=== PATIENT | male | born 1995 | race Caucasian/White ===

== ENCOUNTER 2017-10-13 16:30 | Emergency (ER) | payer OTHER ==
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
[2017-10-13 17:28] VITALS: BP 122/82; PULSE 77; RESP 20; TEMP 97.9; O2SAT 95
== END 2017-10-13 17:28 | disposition home or self-care (01) ==
PROC: 0CQ0XZZ Repair Upper Lip, External Approach (ICD-10-PCS; principal; 2017-10-13)
DX: S01.511A Laceration without foreign body of lip, initial encounter (principal); V18.0XXA Pedal cycle driver injured in noncollision transport accident in nontraffic accident, initial encounter; Y92.410 Unspecified street and highway as the place of occurrence of the external cause; Y93.39 Activity, other involving climbing, rappelling and jumping off

== ENCOUNTER 2018-03-12 20:09 | Emergency (ER) | payer OTHER ==
[2018-03-12] MEDS ORDERED: PROPARACAINE/FLUORESCEIN SOD 5 ML OPHT.BTL ONE (20:12)
[2018-03-12 20:18] VITALS: BP 137/72
[2018-03-12] MEDS ORDERED: OFLOXACIN 0.3% SOLN PREPACK OPHT.BTL TAKEHOME ONE (20:38)
--- NOTE | 2018-03-12 20:38 | EDPHY ---
H & P Smoking Status: Never smoked Time Seen by Provider: 03/12/18 20:18 HPI/ROS: CHIEF COMPLAINT: Right eye redness and discharge HISTORY OF PRESENT ILLNESS: 22-year-old male presents to the emergency department with right eye redness and discharge that just began this evening. He denies any known trauma or injury. He does wear contacts but does not wear them through the night. He describes only symptoms in the right eye. No symptoms in the left eye. No foreign body sensation. ROS: No visual changes. No symptoms in the left eye. (Adelita Kiser) Past Medical/Surgical History: Acne (Adelita Kiser) Social History: Single (Adelita Kiser) Physical Exam: Visual Acuity: noted from Nurse's notes. Pupils:equal round and reactive to light EOMI Lids: no edema or swelling Skin: no proptosis, no periorbital erythema or swelling, no vesicles Conjunctivae: Mild scleral injection to the right conjunctiva. Purulent drainage noted. Left eye is clear. Cornea: Slit-lamp examination not performed. Cornea otherwise appears normal. Anterior chamber:normal, no hyphema or hypopyon (Adelita Kiser) Constitutional: Initial Vital Signs Temperature (C) 36.6 C 03/12/18 20:17 Heart Rate 63 03/12/18 20:17 Respiratory Rate 16 03/12/18 20:17 Blood Pressure 137/72 H 03/12/18 20:17 O2 Sat (%) 95 03/12/18 20:17 O2 Delivery Mode Room Air Allergies/Adverse Reactions: No Known Allergies Allergy (Verified 03/12/18 20:16) Home Medications: Medication Instructions Recorded NK [No Known Home Meds] 10/13/17 MDM/Departure - MDM Medications Given: Discontinued Medications Ofloxacin (Ocuflox 0.3% Opht Drops Prepack) [facility] Stop: 03/12/18 20:39 Last Admin: 03/12/18 20:49 Dose: 1 btl ED Course/Re-evaluation: Clinically I think this patient has conjunctivitis. He will be treated with Ocuflox drops. He was discouraged from using his contacts for at least 1 week. I do not think slit-lamp examination is indicated. The patient has no pain associated with this. I doubt keratitis. Encouraged to return if symptoms do not improve the next 48 hr. (Adelita Kiser) - Depart Disposition: Home, Routine, Self-Care Clinical Impression: Conjunctivitis, right eye Qualifiers: Conjunctivitis type: acute Acute conjunctivitis type: unspecified Qualified Code(s): H10.31 - Unspecified acute conjunctivitis, right eye Condition: Good Instructions: Conjunctivitis (ED) Additional Instructions: Ocuflox to drops four times daily as directed for 1 week. Do not wear contacts for 1 week. Return to the emergency department if he developed visual changes, increasing pain, or any other concerns. Stand Alone Forms: School Excuse Referrals: Rigo Pike MD [Medical Doctor] - 2-3 days, if not improved (Patrol Agent on-call)
== END 2018-03-12 21:11 | disposition home or self-care (01) ==
DX: H10.31 Unspecified acute conjunctivitis, right eye (principal)